=== PATIENT | male | born 1955 | race African-American/Black ===

== ENCOUNTER 2017-06-26 19:16 | Inpatient (IN) | payer OTHER ==
[~2017-06-26] VITALS: Ht 160 cm; Wt 72.1 kg
[2017-06-26] VITALS (19 sets, daily range): BP systolic 46–139; BP diastolic 21–125
--- NOTE | ~2017-06-26 | P ---
[place] [address] PROCEDURE REPORT Name: LOC DURAN Room #: 236-P [facility] IN M.R.#: [id number] Admission: 06/26/17 Attend Phys: Mario Gaviria DO Discharge: Date of : 59 Report #: [id number] THIS REPORT FOR: //name// CC: Mario Gaviria NO PCP DATE OF SERVICE: 06/26/2017 PROCEDURE: Right subclavian triple-lumen catheter insertion. INDICATION: Severe sepsis, need for central venous access for vasopressors and multiple IV fluids and antibiotics and other infusions. PROCEDURE NOTATION: After discussing procedure with sister, she gave consent. After obtaining informed consent, right subclavian site was chosen. This was cleansed with 2% chlorhexidine gluconate using maximal barrier method including head gown, mask, gloves and using sterile technique was put in place. The patient then received 4 mL of 1% lidocaine to provide topical anesthesia. The patient received 8 mg of Versed throughout the procedure to provide adequate sedation. Once complete, the introduced needle was then advanced using an infraclavicular approach until blood was easily aspirated. J wire was then advanced using Seldinger technique and after dermotomy of the J wire, the dilator was then advanced over the J wire and this was removed and triple lumen catheter inserted to 18 cm. This was sutured in place. All lines flushed and aspirated easily, dressed with an Op-Site and a Biopatch. Chest x-ray confirmed good location with no pneumothorax. The patient tolerated well with minimal blood loss. <ELECTRONICALLY SIGNED> By: Grady Garcia MD 07/04/17 1823 2350 1128 Grady Garcia MD /nt
--- NOTE | ~2017-06-26 | EKG ---
[address] [address] ELECTROCARDIOGRAM REPORT Name: LOC DURAN Room #: 236-P ADM IN M.R.#: [id number] Admission: 06/26/17 Attend Phys: Mario Gaviria DO Discharge: Date of : 59 Report #: [id number] THIS REPORT FOR: //name// [facility] ED Test Date: 2017-06-26 Test Time: 19:25:31 Pat Name: LOC DURAN Department: Room: 236 Gender: M [employer] Sales Consultant: MZOOKana : 1955 Requested By: Beth Stephenson Order Number: [id number] MD: Jn Soliman Measurements Intervals [place] Rate: 79 P: 61 NC: 136 QRS: 68 QRSD: 122 T: 214 QT: 407 QTc: 467 Interpretive Statements Sinus rhythm IVCD, consider atypical LBBB No previous ECG available for comparison Electronically Signed On 06-27-2017 8:17:25 MILL CONTROL OPERATOR by Jn Soliman [email or web address] <ELECTRONICALLY SIGNED> By: Jn Soliman MD 06/27/17 0817 1925 24 Jn Soliman MD /CLAUDIA
--- NOTE | ~2017-06-26 | HC ---
[facility] [place] [address] CONSULTATION Name: LOC DURAN Room #: 236-P ADM IN M.R.#: [id number] Admission: 06/26/17 Attend Phys: Mario Gaviria DO Discharge: Date of : 59 Report #: [id number] THIS REPORT FOR: //name// CC: Mario Gaviria DO NO PCP DATE OF SERVICE: 06/30/2017 REQUESTING PHYSICIAN: Mario Gaviria DO CHIEF COMPLAINT: Hypoxic respiratory failure. HISTORY OF PRESENT ILLNESS: The patient is a 61-year-old male who presented initially to the Emergency Department on 06/26/2017 by EMS from his long-term care facility. The patient had had a steady decline over the last few weeks per family report, decreased p.o. and was found to have likely aspiration pneumonia and septic shock. Pressors were initially 60s/30s. The patient was subsequently intubated and also additionally was found to have a stage IV sacral ulcer as well as 2 other buttock wounds. Subsequently, he has been found to have likely osteomyelitis in this area. After surgery evaluation, he would likely require extensive surgical procedure to remove part of the sacrum and pelvis and unfortunately, the patient was not found to likely to have survived this procedure and subsequently I was consulted to speak with family regarding this patient. He is currently not responsive, has a history of Down syndrome and advanced dementia. Family members that I spoke to were his sister Shandra as well as sister Juhi and Breanna and subsequently brother, Rosalio. He has additionally 5 other family members, brothers and sisters. ALLERGIES: No known drug allergies. PAST MEDICAL HISTORY: Down syndrome, history of decubitus ulcers, hypertension, hypothyroidism, advanced dementia. SOCIAL HISTORY: Again, the patient has Down syndrome. His sister Shandra is his durable power of attorney lawyer. No tobacco or alcohol use. FAMILY HISTORY: Noncontributory at this time. OUTPATIENT MEDICATIONS: Tylenol, vitamin C, Augmentin, Dulcolax, Coreg, ferrous sulfate, heparin, Synthroid, lisinopril, miconazole, Remeron, multivitamin, oxycodone, guaifenesin. REVIEW OF SYSTEMS: Unobtainable due to medical condition. PHYSICAL EXAMINATION: [facility] [address] [place] [address] CONSULTATION Name: LOC DURAN Room #: 236-P [facility] IN M.R.#: [id number] Admission: 06/26/17 Attend Phys: Mario Gaviria DO Discharge: Date of : 59 Report #: [id number] VITAL SIGNS: Include temperature 37.1, pulse 85, respirations 28, blood pressure 104/57, 99% on CPAP settings currently. GENERAL: He awakens to verbal and touch stimuli, but no purposeful movements appreciated. Does not follow commands. HEENT: No apparent scleral icterus or conjunctival injection. CARDIOVASCULAR: Regular rate and rhythm without murmur. LUNGS: He has rales in bibasilar area. ABDOMEN: Diminished bowel sounds, soft, slight distention. EXTREMITIES: Edema noted. LABORATORY DATA: These include a white blood cell 27.1, hemoglobin 6.5, platelets 280, MCV 74.0. Sodium 151, creatinine 0.9, calcium 7.4. ASSESSMENT AND PLAN: 1. Acute hypoxic respiratory failure. Management per pulmonary team appreciated. I had an extensive discussion with again 4 family members today at separate times, but spent approximately 1.5 hours in discussion of advanced care planning. Discussed code status at which time they have decided to make him DNR. I have discussed the options with regards to palliative care if they wish to pursue this and discuss the different options that we have available of stopping certain aspects of care and they are to make decisions with regards to ventilator, pressors and with regards to transfusion. They stated that they will be meeting as a family to decide this. They appear to be leaning towards palliative withdrawal of care. I did discuss the possibility of outpatient hospice if the patient was stable enough. However, at this point in time, I am more focused on inpatient palliative care and I described what this would entail. 2. Septic shock as above. 3. Anemia, severe, unknown origin. 4. Stage 4 sacral wound with osteomyelitis as above. 5. Advanced dementia as above. This contributes to his overall quality of life being poor and prognosis being poor. Again, I will continue to follow the patient. We will follow up Sunday most likely, although I have given contact information to family. <ELECTRONICALLY SIGNED> By: Jorge Kinsey DO 07/04/17 1223 1809 1046 Jorge Kinsey DO /nt
--- NOTE | ~2017-06-26 | HC ---
[facility] [place] [address] CONSULTATION Name: LOC DURAN Room #: 236-P [facility] IN M.R.#: [id number] Admission: 06/26/17 Attend Phys: Mario Gaviria DO Discharge: Date of : 59 Report #: [id number] THIS REPORT FOR: //name// CC: Mario HUSSEIN PCP DATE OF SERVICE: 06/26/2017 REFERRING PROVIDER: Christine Horvath. REASON FOR CONSULTATION: Respiratory failure. CHIEF COMPLAINT: Respiratory arrest. HISTORY OF PRESENT ILLNESS: Our group was asked to evaluate the patient in consultation while hospitalized at [facility], called by nursing to come and evaluate him in the ICU. A 61-year-old male, currently unable to give any history. He is intubated on the ventilator apparently. According to family and review of records, a 61-year-old male, currently resides in a half-way facility due to underlying significant Down syndrome and likely associated advanced dementia as well as decubitus wounds, currently have been getting fed by family, but started having some difficulty breathing, coughing, gurgling. EMS was activated and found significant amount of food in his throat. There is concern for aspiration. The patient was hypoxic, intubated and transferred to our Emergency Department. The patient was hypotensive, received 2 liters of fluid in the Emergency Department. A chest x-ray revealed diffuse central appearing pulmonary infiltrates. The patient is tachypneic, but resting on the ventilator, currently not particularly responsive. ALLERGIES: None known. OUTPATIENT MEDICATIONS: Include Tylenol, vitamin C, Augmentin for unclear etiology, Dulcolax, carvedilol, ferrous sulfate, l-arginine, heparin twice daily, Synthroid, lisinopril, miconazole topical, Remeron, multivitamin, p.r.n. oxycodone, guaifenesin. PAST MEDICAL HISTORY: 1. Down syndrome. 2. Decubitus ulcers. 2. Hypertension. 3. Hypothyroidism. SOCIAL HISTORY: Unobtainable. FAMILY HISTORY: Unobtainable. [facility] [address] [place] [address] CONSULTATION Name: LOC DURAN Room #: 236-P ADM IN M.R.#: [id number] Admission: 06/26/17 Attend Phys: Mario Gaviria DO Discharge: Date of : 59 Report #: [id number] REVIEW OF SYSTEMS: Unobtainable due to his current status. PHYSICAL EXAMINATION: VITAL SIGNS: Temperature 37.1, pulse 90s-100, respiratory rate 30s on the ventilator, blood pressure currently 124/80. GENERAL: This is a thin, middle-aged male, sedate, poorly responsive. ENT: Endotracheal tube in place. Clear oropharynx. No thrush. Edentulous. NECK: Supple, no lymphadenopathy. LUNGS: Some coarse rhonchi heard throughout. CARDIOVASCULAR: Heart was regular. No murmurs noted. ABDOMEN: Soft, nontender, no masses. EXTREMITIES: Revealed significant muscular atrophy, in lower extremity boots. SKIN: Revealed sacral wound dressed, did not undress to evaluate. LABORATORY DATA: Arterial blood gas revealed pH 7.32, pCO2 of 41, pO2 of 468, bicarbonate 21, lactate was 2.74, this on assist control, tidal volume of 500, rate of 14, PEEP of 5, the patient's respiratory rate 30s. Urinalysis revealed significant pyuria and elevated pH White blood cell count was 15,000, hemoglobin 9, hematocrit 29, platelet count 393. INR 1.2. Sodium 140, potassium 3.8, chloride 106, bicarbonate 24, BUN 61, creatinine 1.9, glucose 165. Lactate 2.4, ALT 115, AST 96, albumin 1.2. Chest x-ray as described. IMPRESSION: 1. Diffuse pulmonary infiltrates most consistent with aspiration, however, would not rule out the possibility. The patient has underlying influenza or pneumonia prior to this event and would cover for all the above. Infectious Disease consultation noted. We will let them direct antimicrobial therapy. We will add bronchodilators given possible bronchospasm associated with aspiration. 2. Respiratory failure due to #1 above, no longer hypoxemic with support mechanical ventilator. Continue with mechanical ventilatory support until neuro status improves and acid base status improves to reduce his minute volume requirements. 3. Metabolic acidosis and elevated lactate consistent with significant distress from acute aspiration event and/or ongoing sepsis. The patient received some fluid bolus in the Emergency Department. Continue with supportive care. Chest x-ray does not show any signs of pulmonary edema as the superior vena cava is small. Suggest continued IV hydration, monitoring arterial blood pressures, vasopressors, currently with Levophed, plans for stress dose steroids noted. 4. Probable urinary tract infection with elevated pH suggestive of Proteus species, again antimicrobials per Infectious Disease Service. 5. Anemia. 6. Protein malnutrition as noted by markedly reduced albumin. 7. Renal insufficiency, unclear if acute or chronic or both. 8. Mildly elevated liver enzymes. 9. Down syndrome. 10. Decubitus wound. [facility] [address] [place] [address] CONSULTATION Name: LOC DURAN Room #: 236-P ADM IN M.R.#: [id number] Admission: 06/26/17 Attend Phys: Mario Gaviria DO Discharge: Date of : 59 Report #: [id number] SUGGESTIONS: As outlined above, continue with ICU care. Central access, vasopressors are ongoing need. He has got 2 good peripheral IVs at this time. Additional recommendations to follow. Discussed with nursing at the bedside. Total critical care time 35 minutes, not including any procedures. <ELECTRONICALLY SIGNED> By: Grady Garcia MD 07/04/17 1823 2229 1121 Grady Garcia MD /nt
--- NOTE | ~2017-06-26 | HC ---
[facility] [place] [address] CONSULTATION Name: LOC DURAN Room #: 423-1 [facility] IN M.R.#: [id number] Admission: 06/26/17 Attend Phys: Mario Gaviria DO Discharge: 07/06/17 Date of : 59 Report #: [id number] THIS REPORT FOR: //name// CC: Mario Gaviria NO PCP DATE OF SERVICE: 06/27/2017 WOUND CARE CONSULTATION PERSONAL PHYSICIAN: None on staff. CHIEF COMPLAINT: Multiple decubitus ulcers. HISTORY OF PRESENT ILLNESS: This is a 61-year-old black male who is a resident of [facility], who was admitted to the Emergency Department last evening for respiratory distress. The patient was actually intubated and is on the ventilator at this time. There is a question whether the patient aspirated as well as the patient is having coffee-ground material through his orogastric tube as well as dark brown stools concerning for melena. On admission, the patient was noted to have decubitus ulcers over both ischial tuberosities as well as his coccygeal region. These have been longstanding. The patient ____ to give any history and there is no family in the room at this time. All the history is now obtained from the old records. We have been asked to follow the patient for wounds call here. According to the nursing staff, the family wants every measure if possible for this patient. The family wants to be aggressive in all their medical treatment. PAST MEDICAL HISTORY: Per old records is significant for Down syndrome, dysphagia and decubitus ulcers. CURRENT MEDICATIONS: Per group home records are multiple. I reviewed the patient's medication list. DRUG ALLERGIES: None. SOCIAL HISTORY: The patient resides in a care facility. It is unclear whether the patient has a history of smoking or alcohol use. FAMILY HISTORY: Unobtainable because the patient is intubated and sedated. REVIEW OF SYSTEMS: Unobtainable because the patient is intubated and sedated. PHYSICAL EXAMINATION: VITAL SIGNS: Stable. The patient is afebrile. The patient is on a ventilator at this time. [facility] [address] [place] [address] CONSULTATION Name: LOC DURAN Room #: 423-1 [facility] IN M.R.#: [id number] Admission: 06/26/17 Attend Phys: Mario Gaviria DO Discharge: 07/06/17 Date of : 59 Report #: [id number] GENERAL: This is an intubated and sedated black male who does not appear to be in any acute distress. HEENT: Normocephalic, atraumatic. Mucous membranes are dry. Orogastric and oral endotracheal tube are in place. Pupils are pinpoint. Sclerae are white. NECK: Supple without obvious JVD or masses. LUNGS: Coarse breath sounds heard throughout. HEART: Tachycardic with 2/6 systolic ejection murmur. ABDOMEN: Soft, otherwise nontender. The patient does not have any colostomy or PEG tubes. EXTREMITIES: The patient moves all extremities spontaneously. There is what appears to be some contractures of his lower extremities. Distal pulses appear to be intact. Bilateral heels are intact. Evaluation of sacrum reveals stage 4 decubitus ulcer with exposed bone. The wound itself has a moderate odor with serosanguineous drainage. The wound itself has approximately 75% granulation to 25% yellowish slough. Makenna-wound is otherwise intact without significant erythema, warmth or cellulitis. Evaluation of right ischial tuberosity reveals a stage 4 decubitus ulcer, which is necrotic and foul-smelling. There is palpable bone over the ischium, but no bony spicules palpated. Makenna-ulcer is intact without erythema, warmth or signs of cellulitis. Evaluation of left ischial tuberosity reveals unstageable decubitus ulcer with 100% slough and some necrotic tissue. Makenna-ulcer is intact without erythema, warmth or signs of cellulitis. On the left lower buttock is a stage 2 decubitus ulcer, which is clean and granulating. The patient is incontinent of a large amount of brownish black stool. NEUROLOGIC: Once again, the patient is intubated and sedated. LABORATORY DATA: White count 6.7, hemoglobin 8.4, BUN 46, creatinine 1.4. Albumin is markedly low at 1.2. IMPRESSION: 1. Stage 4 decubitus ulcer, right ischial tuberosity, present on admission. 2. Unstageable decubitus ulcer, left tuberosity, present on admission. 3. Stage 4 decubitus ulcer, sacrococcygeal region, present on admission. 4. Decubitus ulcer stage 2, left lower buttock, present on admission. 5. History of Down syndrome. 6. Respiratory failure, currently on ventilator with a current concern for aspiration. 7. Severe protein calorie malnutrition with an albumin of 1.2. 8. Generalized debility. PLAN: At this time, we will use Dakin's half strength solution, wet dry dressings to all the open ulcerations on the ischium as well as sacrococcygeal region and cover this with an ABD twice daily. The patient is already on air loss mattress and will be turned every 2 hours. We will consult General Surgery for surgical debridement of the ulcerations and possible PEG tube and colostomy. Family is agreeable to proceeding with this advanced care. We will maximize [facility] [place] [address] CONSULTATION Name: LOC DURAN Room #: 423-1 [facility] IN M.R.#: [id number] Admission: 06/26/17 Attend Phys: Mario Gaviria DO Discharge: 07/06/17 Date of : 59 Report #: [id number] the patient's protein supplementation as able; however, the patient currently is n.p.o. at this time. If family does want to be aggressive, the patient will require PEG tube placement for adequate nutrition. We will continue to follow the patient while he is here. <ELECTRONICALLY SIGNED> By: Franklin Barillas MD 08/09/17 1525 1222 2102 Franklin Barillas MD /nt
--- NOTE | ~2017-06-26 | HC ---
[facility] [place] [address] CONSULTATION Name: LOC DURAN Room #: 236-P [facility] IN M.R.#: [id number] Admission: 06/26/17 Attend Phys: Mario Gaviria DO Discharge: Date of : 59 Report #: [id number] THIS REPORT FOR: //name// CC: Mario Gaviria NO PCP REASON FOR CONSULTATION: I was asked to evaluate concerning septic shock. HISTORY OF PRESENT ILLNESS: The patient was a 61-year-old detention resident with Down syndrome who has chronic sacral and ischial wounds, who presents through the Emergency Room with respiratory failure and profound hypotension. He had had issues with chest congestion over the last several weeks. He had acute onset of respiratory compromise. EMS to the detention. There was retained food in his throat. He required suctioning and ventilation support, transported to the Emergency Room finding a fairly significant right lung pneumonia. He received IV antibiotic therapy after cultures were obtained. Fluid resuscitation, right subclavian catheter was placed. Remains on high dose vasopressors, Levophed with the addition of epinephrine. ALLERGIES: None known. MEDICATIONS: As noted on his MAR including vancomycin, Levaquin, Zosyn. Previously been on amoxicillin, clavulanic acid. Other medications as noted on his MAR. PAST MEDICAL HISTORY: Down syndrome, dementia, dysphagia, sacral and ischial wounds generalized weakness, recurrent urinary tract infection. FAMILY HISTORY: Noncontributory. SOCIAL HISTORY: Nonsmoker, no significant alcohol intake. REVIEW OF SYSTEMS: As noted above with no gross vomiting, diarrhea, complaints of abdominal pain, dysuria or frequency. PHYSICAL EXAMINATION: VITAL SIGNS: Afebrile, pulse 82, respirations 28, blood pressure 92/53 with a MAP of 63 on Levophed and epinephrine. GENERAL: He was incontinent of formed stool. He was a bit restless in the bed. EYES: Unremarkable. MOUTH: Orally intubated, otherwise unremarkable. NECK: Supple. LUNGS: Coarse bilaterally, right greater than left. HEART: Regular, without murmur. ABDOMEN: Soft, nontender, no hepatosplenomegaly or mass. WOUNDS: Sacral and ischial wounds were packed, reasonably clean with no surrounding cellulitis and no purulent drainage. [facility] [address] [place] [address] CONSULTATION Name: LOC DURAN Room #: 236-P ADM IN M.R.#: [id number] Admission: 06/26/17 Attend Phys: Mario Gaviria DO Discharge: Date of : 59 Report #: [id number] EXTREMITIES: Unremarkable. LABORATORY STUDIES: Chest x-ray, extensive right lung consolidating infiltrate, left perihilar and lower lobe infiltrate. Sodium 141, potassium 3.8, bicarbonate 22, creatinine 1.4, AST 96, ALT 115. Lactate 2.4. Procalcitonin 0.5. Hemoglobin 8.4, platelet count 337,000, white count 6.7 with 29% segs, 44% bands. Urinalysis, many wbc's and bacteria. Blood, urine and sputum cultures are pending. Viral respiratory panel is pending. IMPRESSION: A 61-year-old with: 1. Profound shock. 2. Acute renal failure. 3. Marked bandemia following healthcare-associated aspiration. 4. Also has evidence of urinary tract infection. PLAN: Recommend obtaining viral swab for influenza antigen. Continue broad antibiotic coverage. Await cultures. Image urinary tract to ensure no obstruction. Pulmonary toilet and continue support in the ICU with sepsis protocol. <ELECTRONICALLY SIGNED> By: Enrique Vail MD 06/28/17 0946 0856 1842 Enrique Vail MD /nt
--- NOTE | ~2017-06-26 | S ---
[facility] [place] [address] SURGICAL PATH RPT PROCEDURE Name: DEVON DURAN Room #: 236-P ADM IN M.R.#: [id number] Admission: 06/26/17 Date of : 59 Discharge: Report #: [id number] Path Case #: [id number] PATHOLOGY REPORT COLLECTION DATE: 06/29/2017 RECEIVED DATE: 06/29/2017 SUBMITTING PHYS: Dr. Jesse De La Garza, DO OTHER PHYS: Dr. Mario Gaviria SPECIMEN(S) RECEIVED: A.Sacral tissue B.Tissue over left ischium C.Tissue over right ischium * * * * * * * * * * * * FINAL DIAGNOSIS: A. "Sacral tissue", debridement: - Skin and subcutaneous tissue with acute and chronic inflammation, necrosis, granulation tissue, fibrosis and fat necrosis with pseudoepitheliomatous hyperplasia. B. "Tissue over left ischium", debridement: - Skin and subcutaneous tissue with acute and chronic inflammation, necrosis, granulation tissue, fibrosis, fat necrosis and skeletal muscle with pseudoepitheliomatous hyperplasia and skeletal muscle atrophy. - Incidental seborrheic keratosis. C. "Tissue over right ischium", debridement: - Skin and subcutaneous tissue with acute and chronic inflammation, necrosis, granulation tissue, fibrosis, fat necrosis and skeletal muscle with pseudoepitheliomatous hyperplasia and skeletal muscle atrophy. (CLW:codie; 07/02/2017) PATHOLOGIST: Kanika Hernández M.D. REPORT ELECTRONICALLY SIGNED BY: Kanika Hernández M.D. DATE/TIME: 07/02/2017 14:32 * * * * * * * * * * * * GROSS PATHOLOGY: A. The specimen is received in formalin, labeled "Devon Duran sacral tissue". Received are two large segments of irregularly contoured, pale rucker to cutler-rucker skin with attached underlying pink-rucker to dark cutler-rucker soft tissue measuring 9.4 x 7.2 x 2.5 cm in aggregate dimensions, as well as a smaller fragment of pale-rucker to pink-rucker soft tissue with no attached skin measuring 2.4 x 1.7 x 1.2 cm in greatest dimensions. The specimen is submitted [address] [address] SURGICAL PATH RPT PROCEDURE Name: DEVON DURAN Room #: 236-P ADM IN M.R.#: [id number] Admission: 06/26/17 Date of : 59 Discharge: Report #: [id number] Path Case #: [id number] representatively in cassette A1. B. The specimen is received in formalin, labeled "Devon Duran, tissue over left ischium". Received is an ovoid segment of dark brown skin with attached underlying pale white-rucker to yellow-rucker soft tissue measuring 4.2 x 3.4 x 2.4 cm in greatest dimensions. The epidermal surface displays a well-circumscribed defect measuring 2.4 x 2.0 cm that shows underlying yellow-rucker to dark brown, necrotic-appearing tissue. Also received within the specimen container is an irregular segment of pale-rucker to yellow-rucker soft tissue measuring 2.4 x 2.2 x 0.5 cm in greatest dimensions. The specimen is submitted representatively in cassette B1. C. The specimen is received in formalin, labeled "Devon Duran, tissue over right ischium". Received are 2 large segments of irregularly contoured, pale rucker to dark brown skin with attached underlying yellow-rucker to pink-rucker soft tissue measuring 7.9 x 6.2 x 2.5 cm in aggregate dimensions, as well as multiple fragments of pink-rucker to dark yellow-brown, partially necrotic-appearing soft tissue with no attached skin measuring 9.2 x 8.5 x 2.4 cm in aggregate dimensions. The specimen is submitted representatively in cassette C1. (DAC; 06/29/2017) CLINICAL HISTORY: Sacral decub INITIAL CPT CODE(S): A; 51229 B; 11575 C; 64637 Professional services performed by [facility] [place] [address], [place] [address] Technical services performed by [facility] at [address] [place] [address], [address], [place] [address]. [facility] [place] [address] PHONE: [phone] DIRECTOR: Juan A Baer M.D. * * * END OF REPORT * * *
[2017-06-26] MEDS ORDERED: APAP650 PO (19:32)
[2017-06-26] MEDS ORDERED: VITAMIN C500 M2 PO (19:32)
[2017-06-26 19:33] LABS: ABSOLUTE NEUTROPHILS 13.6 thou/uL (1.4-8.2); BASOPHILS 0.3 % (0.0-2.0); EOSINOPHILS 0.2 % (0.0-3.0); HEMATOCRIT 29.1 % (42.0-52.0); HEMOGLOBIN 9.1 gm/dL (14.0-18.0); MCH 23.5 pg (26.0-34.0); MCHC 31.3 g/dL (28.0-37.0); MCV 75.2 fL (80.0-100.0); MONOCYTES 2.3 % (1.0-8.0); PLATELET COUNT 393 thou/uL (150-400); POLYS 90.2 % (36.0-66.0); RBC 3.87 mil/uL (4.50-6.00); RDW 18.4 % (10.5-14.5); WBC 15.1 thou/uL (4.0-11.0)
[2017-06-26] MEDS ORDERED: BISACODYL SUPP10 MG RECTAL (19:34)
[2017-06-26] MEDS ORDERED: AUGMENTIN 875-1 EACH PO (19:34)
[2017-06-26] MEDS ORDERED: CARVEDILOL6.25 MG (19:34)
[2017-06-26] MEDS ORDERED: FISH OIL 1,001000 M2 PO (19:35)
[2017-06-26] MEDS ORDERED: IRON325 PO (19:35)
[2017-06-26] MEDS ORDERED: L-ARGININE500 MG PO (19:36)
[2017-06-26] MEDS ORDERED: HEPARIN SO5000 UNIT2 SUBQ (19:36)
[2017-06-26] MEDS ORDERED: SYNTHROID100 MCG PO (19:37)
[2017-06-26] MEDS ORDERED: LISINOPRIL5 MG PO (19:37)
[2017-06-26] MEDS ORDERED: REMERON15 MG PO (19:41)
[2017-06-26] MEDS ORDERED: MICATIN14 GM TOP (19:41)
[2017-06-26] MEDS ORDERED: OXYCODONE HCL 55 MG PO (19:42)
[2017-06-26] MEDS ORDERED: CENTRUM SILVER1 EAC2 PO (19:42)
[2017-06-26] MEDS ORDERED: PRO-STAT LIQUID30 M1 PO (19:43)
[2017-06-26] MEDS ORDERED: TWOCAL HN LIQU237 ML PO (19:44)
[2017-06-26] MEDS ORDERED: ROBITUSSIN100 MG/53 PO (19:44)
[2017-06-26 19:47] LABS: BE(vivo) -5.2 mmol/L (-2 to +3); HCO3 20.6 mmol/L (22.0-26.0); PCO2 41.2 mmHg (35.0-45.0); PO2 468.4 mmHg (80.0-100.0); sO2 99.8 % (92.0-98.0)
[2017-06-26 19:48] LABS: CALCIUM 8.1 mg/dL (8.5-10.1); CREATININE 1.9 mg/dL (0.7-1.3); POTASSIUM 3.8 mmol/L (3.5-5.1)
[2017-06-26 19:48] LABS: pH 7.316 (7.360-7.450)
[2017-06-26 19:49] LABS: URINE BILIRUBIN NEGATIVE (Negative); URINE BLOOD TRACE (Negative); URINE CLARITY CLOUDY; URINE COLOR STRAW; URINE GLUCOSE-RANDOM* NEGATIVE (Negative); URINE KETONES NEGATIVE (Negative); URINE LEUKOCYTES 3+ (Negative); URINE NITRITE NEGATIVE (Negative); URINE PROTEIN (DIPSTICK) 2+ (Negative)
[2017-06-26 19:51] LABS: ALBUMIN 1.2 g/dL (3.4-5.0); DIRECT BILIRUBIN < 0.1 mg/dL (<0.1-0.3); SGOT 96 U/L (15-37); SGPT 115 U/L (30-65); TOTAL BILIRUBIN 0.2 mg/dL (<0.1-1.0); TOTAL PROTEIN 6.2 g/dL (6.4-8.2)
[2017-06-26 19:52] LABS: BACTERIA >30 Many /HPF (None Seen); CRYSTALS None Seen /LPF (None Seen); SQUAMOUS None Seen /LPF (0-3); URINE RBC None Seen /HPF (0-2); URINE WBC >25 Many /HPF (0-5)
[2017-06-26 22:05] LABS: APTT 29.9 Seconds (24.5-32.8); FIBRINOGEN 506.1 mg/dL (210-360); INR 1.2
[2017-06-27] VITALS (106 sets, daily range): BP systolic 65–124; BP diastolic 37–89
[2017-06-27 00:09] LABS: HEMATOCRIT 26.5 % (42.0-52.0); HEMOGLOBIN 8.4 gm/dL (14.0-18.0); MCH 23.9 pg (26.0-34.0); MCHC 31.9 g/dL (28.0-37.0); MCV 74.8 fL (80.0-100.0); PLATELET COUNT 337 thou/uL (150-400); RBC 3.54 mil/uL (4.50-6.00); RDW 18.8 % (10.5-14.5); WBC 6.7 thou/uL (4.0-11.0)
[2017-06-27 00:19] LABS: CALCIUM 7.1 mg/dL (8.5-10.1); CREATININE 1.7 mg/dL (0.7-1.3); POTASSIUM 3.5 mmol/L (3.5-5.1)
[2017-06-27 00:23] LABS: APTT 29.2 Seconds (24.5-32.8); INR 1.2
[2017-06-27 01:46] LABS: ABSOLUTE NEUTROPHILS 4.9 thou/uL (1.4-8.2); ANISOCYTOSIS 2+; ATYPICAL LYMPHS 2 %; HYPOCHROMASIA 1+; LARGE PLATELETS OCCASIONAL; POLYCHROMASIA 1+; TOXIC GRANULATION 1+
[2017-06-27 04:42] LABS: APTT 32.6 Seconds (24.5-32.8); INR 1.2; PROTIME 12.5 Seconds (9.3-11.4)
[2017-06-27 04:57] LABS: CALCIUM 7.6 mg/dL (8.5-10.1); CREATININE 1.4 mg/dL (0.7-1.3); POTASSIUM 3.7 mmol/L (3.5-5.1)
[2017-06-27 05:15] LABS: BE(vivo) -7.7 mmol/L (-2 to +3); PCO2 31.2 mmHg (35.0-45.0); pH 7.353 (7.360-7.450); sO2 98.3 % (92.0-98.0)
[2017-06-27 08:21] LABS: CALCIUM 7.5 mg/dL (8.5-10.1); CREATININE 1.4 mg/dL (0.7-1.3); POTASSIUM 3.8 mmol/L (3.5-5.1)
[2017-06-27 08:26] LABS: APTT 34.2 Seconds (24.5-32.8); FIBRINOGEN 472.2 mg/dL (210-360); INR 1.2; PROTIME 12.7 Seconds (9.3-11.4)
[2017-06-27 19:07] LABS: % SATURATION 18 % (20-39); IRON 13 ug/dL (65-175); TIBC 73 ug/dL (250-450)
[2017-06-28] VITALS (92 sets, daily range): BP systolic 76–119; BP diastolic 41–90
[2017-06-28 05:03] LABS: ABSOLUTE NEUTROPHILS 14.5 thou/uL (1.4-8.2); BASOPHILS 0.1 % (0.0-2.0); HEMATOCRIT 23.1 % (42.0-52.0); HEMOGLOBIN 7.4 gm/dL (14.0-18.0); LYMPHOCYTES 3.4 % (24.0-44.0); MCH 23.5 pg (26.0-34.0); MCV 73.3 fL (80.0-100.0); MONOCYTES 2.9 % (1.0-8.0); PLATELET COUNT 307 thou/uL (150-400); POLYS 93.6 % (36.0-66.0); RBC 3.15 mil/uL (4.50-6.00); RDW 18.4 % (10.5-14.5); WBC 15.5 thou/uL (4.0-11.0)
[2017-06-28 05:22] LABS: CALCIUM 7.7 mg/dL (8.5-10.1); CREATININE 0.9 mg/dL (0.7-1.3); POTASSIUM 3.3 mmol/L (3.5-5.1); TOTAL BILIRUBIN 0.4 mg/dL (<0.1-1.0); TOTAL PROTEIN 5.6 g/dL (6.4-8.2)
[2017-06-28 05:53] LABS: FOLIC ACID 15.4 ng/mL (8.6-58.9)
[2017-06-28 06:12] LABS: HYPOCHROMASIA 1+; LARGE PLATELETS FEW
[2017-06-28 06:13] LABS: ANISOCYTOSIS 2+; BURR CELLS 1+; MICROCYTES 1+; OVALOCYTES FEW; POIKILOCYTOSIS 1+; TARGET CELLS FEW
[2017-06-28 16:07] LABS: HAV IgM AB (ANTI-HAV IgM) Negative (Negative); HEPATITIS B SURFACE AG Negative (Negative); HEPATITIS C VIRUS AB <0.1 (0.0-0.9)
[2017-06-28 21:10] LABS: HEMATOCRIT 23.6 % (42.0-52.0); HEMOGLOBIN 7.5 gm/dL (14.0-18.0)
[2017-06-29] VITALS (59 sets, daily range): BP systolic 64–126; BP diastolic 42–88
[2017-06-29 05:01] LABS: BE(vivo) -5.3 mmol/L (-2 to +3); HCO3 19.5 mmol/L (22.0-26.0); PCO2 34.8 mmHg (35.0-45.0); pH 7.366 (7.360-7.450); sO2 98.3 % (92.0-98.0)
[2017-06-29 05:45] LABS: HEMATOCRIT 23.3 % (42.0-52.0); RBC 3.16 mil/uL (4.50-6.00)
[2017-06-29 05:47] LABS: HEMOGLOBIN 7.3 gm/dL (14.0-18.0); MCHC 31.2 g/dL (28.0-37.0); MCV 73.8 fL (80.0-100.0); PLATELET COUNT 327 thou/uL (150-400); RDW 18.2 % (10.5-14.5); WBC 24.7 thou/uL (4.0-11.0)
[2017-06-29 05:53] LABS: CALCIUM 8.1 mg/dL (8.5-10.1); CREATININE 0.9 mg/dL (0.7-1.3); POTASSIUM 3.8 mmol/L (3.5-5.1)
[2017-06-29 09:14] LABS: ABSOLUTE NEUTROPHILS 23.5 thou/uL (1.4-8.2); ANISOCYTOSIS 2+; HYPOCHROMASIA 1+; MICROCYTES 2+; PLATELET ESTIMATE NORMAL
[2017-06-29 16:12] LABS: CERULOPLASMIN 31.8 mg/dL (16.0-31.0)
[2017-06-30] VITALS (98 sets, daily range): BP systolic 83–134; BP diastolic 47–96
[2017-06-30 05:08] LABS: HEMOGLOBIN 6.5 gm/dL (14.0-18.0); MCH 22.9 pg (26.0-34.0)
[2017-06-30 05:10] LABS: HEMATOCRIT 20.9 % (42.0-52.0); MCHC 30.9 g/dL (28.0-37.0); PLATELET COUNT 280 thou/uL (150-400); RBC 2.83 mil/uL (4.50-6.00); RDW 18.3 % (10.5-14.5); WBC 27.1 thou/uL (4.0-11.0)
[2017-06-30 05:21] LABS: CALCIUM 7.4 mg/dL (8.5-10.1); CREATININE 0.9 mg/dL (0.7-1.3); POTASSIUM 3.7 mmol/L (3.5-5.1)
[2017-06-30 11:08] LABS: ABSOLUTE NEUTROPHILS 25.7 thou/uL (1.4-8.2)
[2017-06-30 11:09] LABS: ANISOCYTOSIS 2+; MICROCYTES 2+; OVALOCYTES FEW; TARGET CELLS FEW
[2017-06-30 11:46] LABS: BE(vivo) -4.1 mmol/L (-2 to +3); HCO3 20.5 mmol/L (22.0-26.0); PCO2 35.4 mmHg (35.0-45.0); PO2 102.2 mmHg (80.0-100.0); pH 7.381 (7.360-7.450); sO2 97.6 % (92.0-98.0)
[2017-06-30 18:06] LABS: ADENOVIRUS Negative (Negative); INFLUENZA A Negative (Negative); INFLUENZA B Negative (Negative); METAPNEUMOVIRUS Negative (Negative); PARAINFLUENZA 1 Negative (Negative); PARAINFLUENZA 2 Negative (Negative); PARAINFLUENZA 3 Negative (Negative); RHINOVIRUS Negative (Negative); RSV A Negative (Negative); RSV B Negative (Negative)
[2017-06-30 20:59] LABS: HEMATOCRIT 29.2 % (42.0-52.0)
[2017-06-30 21:01] LABS: HEMOGLOBIN 9.4 gm/dL (14.0-18.0)
[2017-07-01] VITALS (34 sets, daily range): BP systolic 95–132; BP diastolic 51–87
[2017-07-01 05:12] LABS: HEMATOCRIT 26.9 % (42.0-52.0); HEMOGLOBIN 8.7 gm/dL (14.0-18.0); MCH 24.5 pg (26.0-34.0); MCHC 32.3 g/dL (28.0-37.0); PLATELET COUNT 243 thou/uL (150-400); RBC 3.54 mil/uL (4.50-6.00); RDW 18.3 % (10.5-14.5); WBC 19.2 thou/uL (4.0-11.0)
[2017-07-01 05:20] LABS: CALCIUM 7.3 mg/dL (8.5-10.1); CREATININE 0.9 mg/dL (0.7-1.3); POTASSIUM 3.5 mmol/L (3.5-5.1)
[2017-07-01 07:46] LABS: ABSOLUTE NEUTROPHILS 17.1 thou/uL (1.4-8.2); ATYPICAL LYMPHS 1 %; NUCLEATED RBCS 2 /100WBC
[2017-07-01 07:47] LABS: ANISOCYTOSIS 2+; LARGE PLATELETS RARE; PLATELET ESTIMATE NORMAL; POLYCHROMASIA OCCASIONAL
[2017-07-02] VITALS (25 sets, daily range): BP systolic 93–136; BP diastolic 63–100
[2017-07-02 05:30] LABS: HEMATOCRIT 27.6 % (42.0-52.0); HEMOGLOBIN 8.9 gm/dL (14.0-18.0); MCH 24.7 pg (26.0-34.0); MCHC 32.3 g/dL (28.0-37.0); MCV 76.5 fL (80.0-100.0); PLATELET COUNT 229 thou/uL (150-400); RBC 3.61 mil/uL (4.50-6.00); RDW 18.8 % (10.5-14.5); WBC 19.7 thou/uL (4.0-11.0)
[2017-07-02 05:41] LABS: CALCIUM 7.1 mg/dL (8.5-10.1); CREATININE 0.8 mg/dL (0.7-1.3); POTASSIUM 3.3 mmol/L (3.5-5.1)
[2017-07-02 06:56] LABS: ABSOLUTE NEUTROPHILS 16.9 thou/uL (1.4-8.2); ANISOCYTOSIS 2+; LARGE PLATELETS OCCASIONAL; NUCLEATED RBCS 2 /100WBC
[2017-07-03] VITALS (25 sets, daily range): BP systolic 89–135; BP diastolic 54–111
[2017-07-03 06:05] LABS: HEMOGLOBIN 9.4 gm/dL (14.0-18.0); MCH 24.9 pg (26.0-34.0); MCHC 32.5 g/dL (28.0-37.0); MCV 76.5 fL (80.0-100.0); PLATELET COUNT 262 thou/uL (150-400); RBC 3.79 mil/uL (4.50-6.00); RDW 18.7 % (10.5-14.5); WBC 18.2 thou/uL (4.0-11.0)
[2017-07-03 06:10] LABS: CALCIUM 6.9 mg/dL (8.5-10.1); CREATININE 0.7 mg/dL (0.7-1.3); POTASSIUM 3.4 mmol/L (3.5-5.1)
[2017-07-03 08:51] LABS: ABSOLUTE NEUTROPHILS 15.8 thou/uL (1.4-8.2); ANISOCYTOSIS 1+; PLATELET ESTIMATE NORMAL
[2017-07-03 13:02] LABS: BE(vivo) -1.3 mmol/L (-2 to +3); HCO3 22.9 mmol/L (22.0-26.0); PCO2 36.5 mmHg (35.0-45.0); pH 7.416 (7.360-7.450); sO2 62.2 % (92.0-98.0)
[2017-07-03 13:03] LABS: PO2 31.7 mmHg (80.0-100.0)
[2017-07-04] VITALS (24 sets, daily range): BP systolic 102–125; BP diastolic 62–96
[2017-07-05] VITALS (10 sets, daily range): BP systolic 105–142; BP diastolic 60–95
[2017-07-06 04:00] VITALS: BP 125/75
[2017-07-06 08:10] VITALS: BP 116/82
[2017-07-06] MEDS ORDERED: AUGMENTIN 875-1 EACH PO (15:41)
[2017-07-06 16:49] VITALS: BP 96/52
== END 2017-07-06 17:09 | disposition hospice, home (50) | DRG 853 ==
LOC: ER 19:16 → ICU 19:49 → EROBS 19:49 → ICU 21:03 → 4E 07-05 18:57
PROVIDERS: Emergency Medicine; Family Medicine; Internal Medicine Gastroenterology; Internal Medicine Pulmonary Disease; Nurse Practitioner; Nurse Practitioner Family; Specialist
PROC: 5A1955Z Respiratory Ventilation, Greater than 96 Consecutive Hours (ICD-10-PCS; principal; 2017-06-26)
PROC: 0BH17EZ Insertion of Endotracheal Airway into Trachea, Via Natural or Artificial Opening (ICD-10-PCS; 2017-06-26)
PROC: 0QB10ZZ Excision of Sacrum, Open Approach (ICD-10-PCS; 2017-06-26)
PROC: 0QB20ZZ Excision of Right Pelvic Bone, Open Approach (ICD-10-PCS; 2017-06-26)
PROC: 02HV33Z Insertion of Infusion Device into Superior Vena Cava, Percutaneous Approach (ICD-10-PCS; 2017-06-26)
PROC: 0QB30ZZ Excision of Left Pelvic Bone, Open Approach (ICD-10-PCS; 2017-06-29)
PROC: 30243N1 Transfusion of Nonautologous Red Blood Cells into Central Vein, Percutaneous Approach (ICD-10-PCS; 2017-06-30)
DX: A41.9 Sepsis, unspecified organism (principal); R65.21 Severe sepsis with septic shock; J69.0 Pneumonitis due to inhalation of food and vomit; E43 Unspecified severe protein-calorie malnutrition; J96.01 Acute respiratory failure with hypoxia; N17.0 Acute kidney failure with tubular necrosis; J15.212 Pneumonia due to Methicillin resistant Staphylococcus aureus; L89.154 Pressure ulcer of sacral region, stage 4; N39.0 Urinary tract infection, site not specified; M86.9 Osteomyelitis, unspecified; N13.30 Unspecified hydronephrosis; E87.0 Hyperosmolality and hypernatremia; D64.9 Anemia, unspecified; I10 Essential (primary) hypertension; E03.9 Hypothyroidism, unspecified; F03.90 Unspecified dementia, unspecified severity, without behavioral disturbance, psychotic disturbance, mood disturbance, and anxiety; M26.07 Excessive tuberosity of jaw; L89.322 Pressure ulcer of left buttock, stage 2; R13.12 Dysphagia, oropharyngeal phase; D50.9 Iron deficiency anemia, unspecified; B96.4 Proteus (mirabilis) (morganii) as the cause of diseases classified elsewhere; Z68.28 Body mass index [BMI] 28.0-28.9, adult; Z79.899 Other long term (current) drug therapy; Q90.9 Down syndrome, unspecified; Z23 Encounter for immunization
CPT/HCPCS: 10078; 10783; 50101; 50386; 50403; 53353; 53354; 62110; 62900

== ENCOUNTER 2017-07-15 09:24 | Inpatient (IN) | payer OTHER ==
[~2017-07-15] VITALS: Ht 167.6 cm; Wt 55.8 kg
--- NOTE | ~2017-07-15 | HC ---
[facility] [place] [address] CONSULTATION Name: LOC DURAN Room #: 354-P [facility] IN M.R.#: [id number] Admission: 07/15/17 Attend Phys: Nuno Tanner Discharge: 07/18/17 Date of : 59 Report #: [id number] THIS REPORT FOR: //name// CC: Nuno Tanner MD NO PCP REQUESTING PHYSICIAN: Dr. Tanner. CHIEF COMPLAINT: Respiratory failure. HISTORY OF PRESENT ILLNESS: The patient is a 62-year-old male who I recently saw this last month for recurrent respiratory failure. The patient has had recurrent aspiration pneumonia, likely due to progressive dementia. The patient has a long-standing history of worsening dysphagia, anorexia and weight loss. He has a preexisting Down syndrome, contributing to the development of his dementia. 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 In order to improve or to cure this, he would need a disarticulation and colostomy and additional procedures to be done. Unfortunately, he was unlikely to survive this procedure. Last time, I discussed with the family extensively. The patient was to go back to [facility] and to have hospice there. Unfortunately, at that time, although the DPOA was on board with hospice care and continued DNR status, the family felt that the patient was recovering to such an extent that he could have halfway care. The DPOA did not agree with this, but went along with this plan, resulting in patient being on halfway. Unfortunately, additionally patient had recurrent aspiration and hypoxic respiratory failure, prompting admission. The patient is nonresponsive. He is unable to answer questions. PAST MEDICAL HISTORY: Significant for Down syndrome, chronic dysphagia, dementia, chronic stage 4 decubitus ulcer, recurrent UTIs. FAMILY HISTORY: Noncontributory. SOCIAL HISTORY: The patient was never a smoker or had alcohol abuse. The patient's DPOA is his sister, Shandra, has additional siblings who are all involved in patient's care. MEDICATIONS: Outpatient, he was on vitamin C, Dulcolax p.r.n., Augmentin, levothyroxine, mirtazapine, multivitamin, oxycodone. ALLERGIES: NO KNOWN DRUG ALLERGIES. PAST SURGICAL HISTORY: Wound debridement. REVIEW OF SYSTEMS: Unable to obtain due to medical condition. [facility] [address] [place] [address] CONSULTATION Name: LOC DURAN Room #: 354-P [facility] IN Cj.Jihan.#: [id number] Admission: 07/15/17 Attend Phys: Nuno Tanner Discharge: 07/18/17 Date of : 59 Report #: [id number] PHYSICAL EXAMINATION: VITAL SIGNS: Include temperature 37.1, pulse 137, respirations 18, blood pressure 192/63, pulse ox 92% on nasal cannula. GENERAL: The patient has poor attention level, not alert, has generalized confusion. HEENT: Extraocular muscles appear to be intact and no scleral icterus. No conjunctival injection. No purposeful movements. CARDIOVASCULAR: Regular rate and rhythm without murmur. LUNGS: Clear to auscultation bilaterally. No wheezes, rales or rhonchi. ABDOMEN: Soft, but he does have apparent grimace to palpation. LABORATORY DATA: Include today, white blood cell count 26.1, hemoglobin 8.8, platelets 203. Magnesium 1.7. ASSESSMENT AND PLAN: 1. Kkbgr-re-cgbqtyg hypoxic respiratory failure. I have discussed recurrently with sisterShandra, and sister, Nerissa, today about hospice care. After approximately 15-minute discussion with the family, they appear to be amenable to continuing DNR code status, which I switched again, and additionally they are amenable to hospice care at [facility] and amenable to discharge after meeting with hospice. I have consulted case preparer and liner and discussed this with nursing staff as well. I believe the patient can discharge with oral antibiotics or without antibiotics per patent's preference or per family's preference. Certainly either way could be acceptable at this time. It is unknown if oral antibiotics will make a significant difference to his overall condition. 2. Aspiration pneumonia, recurrent. Again, the patient is likely to have continued aspiration despite any attempts to improve given his severe level of dementia. 3. Dementia. Again, severe at this time, associated with his Down syndrome, unfortunately he has progressed to the point of dysphagia, leading to a poor overall prognosis. 4. Stage 4 decubitus ulcer with osteomyelitis of sacrum. Again, discussed the patient would be unlikely to survive any kind of surgical intervention. Family is aware of this and they were aware that eventually this will cause the end of his life if all other factors were not at this time. I will be happy to continue to follow with this patient. It appears that they will be choosing hospice with [facility] as soon as they have met with hospice again. Thank you very much for the consultation. <ELECTRONICALLY SIGNED> By: Jorge Kinsey DO 08/24/17 [id number] Jorge Kinsey DO /nt
[~2017-07-15 09:24] MED LIST: APAP650 PO; AUGMENTIN 875-1 EACH PO; BISACODYL SUPP10 MG RECTAL; CARVEDILOL6.25 MG; CENTRUM SILVER1 EAC2 PO; FISH OIL 1,001000 M2 PO; HEPARIN SO5000 UNIT2 SUBQ; IRON325 PO; L-ARGININE500 MG PO; LISINOPRIL5 MG PO; MICATIN14 GM TOP; OXYCODONE HCL 55 MG PO; PRO-STAT LIQUID30 M1 PO; REMERON15 MG PO; ROBITUSSIN100 MG/53 PO; SYNTHROID100 MCG PO; TWOCAL HN LIQU237 ML PO; VITAMIN C500 M2 PO
[2017-07-15 09:25] VITALS: BP 100/60
[2017-07-15 10:14] LABS: BE(vivo) 6.3 mmol/L (-2 to +3); HCO3 29.5 mmol/L (22.0-26.0); PCO2 37.2 mmHg (35.0-45.0); PO2 62.7 mmHg (80.0-100.0); pH 7.517 (7.360-7.450); sO2 94.1 % (92.0-98.0)
[2017-07-15 10:31] LABS: HEMATOCRIT 31.4 % (42.0-52.0); HEMOGLOBIN 9.9 gm/dL (14.0-18.0); MCH 25.1 pg (26.0-34.0); MCHC 31.5 g/dL (28.0-37.0); MCV 79.6 fL (80.0-100.0); PLATELET COUNT 238 thou/uL (150-400); RBC 3.94 mil/uL (4.50-6.00); RDW 22.3 % (10.5-14.5); WBC 22.7 thou/uL (4.0-11.0)
[2017-07-15 10:38] LABS: CALCIUM 7.6 mg/dL (8.5-10.1); CREATININE 0.7 mg/dL (0.7-1.3); POTASSIUM 3.7 mmol/L (3.5-5.1)
[2017-07-15 10:44] LABS: ALBUMIN 1.2 g/dL (3.4-5.0); DIRECT BILIRUBIN 0.2 mg/dL (<0.1-0.3); TOTAL BILIRUBIN 0.6 mg/dL (<0.1-1.0); TOTAL PROTEIN 5.2 g/dL (6.4-8.2)
[2017-07-15 10:53] LABS: ABSOLUTE NEUTROPHILS 21.3 thou/uL (1.4-8.2); ANISOCYTOSIS 2+
[2017-07-15 10:54] LABS: HYPOCHROMASIA 1+; MICROCYTES 1+; POLYCHROMASIA OCCASIONAL
[2017-07-15 11:08] LABS: URINE BILIRUBIN 1+ (Negative); URINE BLOOD NEGATIVE (Negative); URINE CLARITY CLOUDY; URINE COLOR YELLOW; URINE GLUCOSE-RANDOM* NEGATIVE (Negative); URINE KETONES NEGATIVE (Negative); URINE PROTEIN (DIPSTICK) 1+ (Negative); URINE SPECIFIC GRAVITY 1.015 (1.005-1.035)
[2017-07-15 11:10] LABS: ICTOTEST (BILI CONFIRMATORY) Positive (Negative); URINE LEUKOCYTES-REFLEX 1+ (Negative); URINE NITRITE-REFLEX POSITIVE (Negative)
[2017-07-15 11:14] LABS: BACTERIA-REFLEX >30 Many /HPF (None Seen); URINE WBC-REFLEX 6-15 Few /HPF (0-5)
[2017-07-15 11:15] LABS: CASTS None Seen /LPF (None Seen); CRYSTALS None Seen /LPF (None Seen); SQUAMOUS 0-3 Few /LPF (0-3); URINE RBC None Seen /HPF (0-2)
[2017-07-15 13:59] VITALS: BP 89/51
[2017-07-15 14:44] VITALS: BP 65/25
[2017-07-15 17:11] VITALS: BP 92/61
[2017-07-16 06:32] LABS: HEMATOCRIT 27.3 % (42.0-52.0); HEMOGLOBIN 8.8 gm/dL (14.0-18.0); MCH 25.7 pg (26.0-34.0); MCHC 32.1 g/dL (28.0-37.0); PLATELET COUNT 203 thou/uL (150-400); RBC 3.42 mil/uL (4.50-6.00); RDW 22.7 % (10.5-14.5); WBC 26.1 thou/uL (4.0-11.0)
[2017-07-16 07:12] LABS: ABSOLUTE NEUTROPHILS 25.1 thou/uL (1.4-8.2); ANISOCYTOSIS 2+
[2017-07-16 07:38] VITALS: BP 217/142
[2017-07-16 11:27] VITALS: BP 110/59
[2017-07-16 17:05] VITALS: BP 127/70
[2017-07-16 19:22] VITALS: BP 92/63
[2017-07-17 03:56] VITALS: BP 101/69
[2017-07-17 08:25] VITALS: BP 121/78
[2017-07-17 12:00] VITALS: BP 100/64
[2017-07-17 17:37] VITALS: BP 135/85
[2017-07-17 19:22] VITALS: BP 110/82
[2017-07-18 04:50] VITALS: BP 110/85
[2017-07-18 08:13] VITALS: BP 110/72
[2017-07-18] MEDS ORDERED: OXYCODONE HCL 55 MG PO (08:50)
== END 2017-07-18 15:02 | disposition hospice, inpatient (51) | DRG 871 ==
LOC: ER 09:24 → TBA 12:44 → 3W 12:44
PROVIDERS: Emergency Medicine; Hospitalist
DX: A41.9 Sepsis, unspecified organism (principal); J69.0 Pneumonitis due to inhalation of food and vomit; G93.41 Metabolic encephalopathy; J96.21 Acute and chronic respiratory failure with hypoxia; E43 Unspecified severe protein-calorie malnutrition; L89.154 Pressure ulcer of sacral region, stage 4; R65.21 Severe sepsis with septic shock; N39.0 Urinary tract infection, site not specified; M86.8X8 Other osteomyelitis, other site; Z68.1 Body mass index [BMI] 19.9 or less, adult; Z66 Do not resuscitate; Z51.5 Encounter for palliative care; R62.7 Adult failure to thrive; E83.42 Hypomagnesemia; E86.0 Dehydration; L89.322 Pressure ulcer of left buttock, stage 2; L89.312 Pressure ulcer of right buttock, stage 2; F03.90 Unspecified dementia, unspecified severity, without behavioral disturbance, psychotic disturbance, mood disturbance, and anxiety; Y95 Nosocomial condition; Q90.9 Down syndrome, unspecified; Z79.899 Other long term (current) drug therapy
CPT/HCPCS: 10879